=== PATIENT | male | born 1980 | race Caucasian/White ===

== ENCOUNTER 2024-05-07 22:14 | Observation (INO) | payer OTHER ==
[~2024-05-07] VITALS: Ht 165.1 cm; Wt 81.6 kg
[2024-05-07 22:53] LABS: BASO% 0.7 % (0-3); EOS% 0.2 % (0-8); HEMATOCRIT 45.9 % (39.0-50.0); HEMOGLOBIN 16.8 g/dl (14.0-18.0); IMMATURE GRANULOCYTES 0.1 % (0.0-5.0); LYMPH% 11.6 % (15-41); MEAN CELL VOLUME 85.5 fL CALC (80.0-100.0); MEAN CORPUSCULAR HGB 31.3 pG CALC (26.0-32.0); MEAN CORPUSCULAR HGB CONC 36.6 g/dL CAL (32.0-36.0); MONO% 9.9 % (2-13); NEUT# 6.46 thou/uL (1.82-7.42); NEUT% 77.5 % (42-76); RED BLOOD COUNT 5.37 mill/uL (4.70-6.10); RED CELL DISTRI WIDTH 11.4 % (11.5-15.5)
[2024-05-07] MEDS ORDERED: ASPIRIN 81 MG/TAB PO ONE (23:00)
[2024-05-07 23:04] LABS: ALBUMIN 5.3 g/dL (3.2-5.0); ALKALINE PHOSPHATASE 79 u/l (38-126); ANION GAP 20 (6-22 (CALC)); BILIRUBIN, TOTAL 1.8 mg/dL (0.2-1.3); BUN 25 mg/dL (9-20); BUN/CREATININE RATIO 18 (12-20 (CALC)); CALCULATED LDLCHOLESTEROL 94 mg/dL (62-129 (CALC)); CARBON DIOXIDE 17 mmol/l (22-30); CHLORIDE 105 mmol/l (95-108); CHOLESTEROL HDL RATIO 2.4 (<4.4 (CALC)); CREATININE 1.4 mg/dL (0.7-1.3); ESTIMATED GFR 64 ML/MIN (>=90 (CALC)); HDL CHOLESTEROL 78 mg/dL (39.0-59.0); POTASSIUM 3.8 mmol/l (3.5-5.1); SGOT/AST 101 u/l (17-59); SODIUM 138 mmol/l (137-146); TOTAL CHOLESTEROL 184 mg/dl (0-199); TOTAL PROTEIN 9.3 g/dL (6.3-8.2); TOTAL TRIGLYCERIDES 63 mg/dl (0-149); VLDL CHOLESTROL 13 mg/dl (5-56 (CALC))
[2024-05-07 23:09] LABS: INTERNATIONAL NORMALIZED RATIO 1.2 RATIO (0.7-1.3)
[2024-05-07 23:14] LABS: PROTHROMBIN TIME 11.1 SECONDS (9.0-12.5)
[2024-05-07] MEDS ORDERED: SODIUM CHLORIDE 0.9% 1,000 ML IV ONE (23:25)
[2024-05-07 23:45] LABS: URINE BLOOD DIPSTICK Negative (NEGATIVE); URINE GLUCOSE - DIPSTICK Negative (NEGATIVE); URINE KETONE 40 mg/dL (NEGATIVE); URINE LEUK ESTERASE Negative (NEGATIVE); URINE NITRITE - DIPSTICK Negative (Negative); URINE PH 5.5 (4.5-8.0); URINE PROTEIN - DIPSTICK 30 mg/dL (NEG-TRACE); URINE SPECIFIC GRAVITY >=1.030
[2024-05-07 23:56] LABS: URINE COLOR Yellow
[2024-05-07 23:58] LABS: URINE BACTERIA MODERATE hpf; URINE EPITHELIAL CELLS FEW EPI/hpf (0-FEW)
[2024-05-08] VITALS (10 sets, daily range): BP systolic 133–145; BP diastolic 86–101
[2024-05-08] MEDS ORDERED: ENOXAPARIN SODIUM 40 MG/0.4 ML SYR SC ONE (00:55)
[2024-05-08] MEDS ORDERED: ALUM & MAG HYDROX-SIMETHICONE 30 ML PO PRN (00:55)
[2024-05-08] MEDS ORDERED: ONDANSETRON HCl 4 MG/2 ML SDV IV PRN (00:55)
[2024-05-08] MEDS ORDERED: ONDANSETRON 4 MG/TAB ODT PO PRN (00:55)
[2024-05-08] MEDS ORDERED: SODIUM CHLORIDE 0.9% 1,000 ML IV PRN (00:55)
[2024-05-08] MEDS ORDERED: FAMOTIDINE 10MG/ML 2ML SDV IV PRN (00:55)
[2024-05-08] MEDS ORDERED: MAGNESIUM HYDROXIDE 30 ML UDC PO PRN (00:55)
[2024-05-08] MEDS ORDERED: IBUPROFEN 800 MG/TAB PO PRN (00:55)
[2024-05-08] MEDS ORDERED: ASPIRIN 81 MG/TAB PO SCH (09:00)
== END 2024-05-08 15:04 | DRG 93 ==
LOC: ED 22:14 → ED-I 05-08 00:46 → ED 05-08 00:58 → MS2 05-08 00:59
PROVIDERS: Family Medicine; ADMIT Student in an Organized Health Care Education/Training Program; ATTEND Student in an Organized Health Care Education/Training Program
DX: R20.0 Anesthesia of skin (principal); R20.2 Paresthesia of skin; R07.9 Chest pain, unspecified; R52 Pain, unspecified; F15.10 Other stimulant abuse, uncomplicated; F41.9 Anxiety disorder, unspecified; Z87.820 Personal history of traumatic brain injury
CPT/HCPCS: G0378; J1650; Q9967